=== PATIENT | male | born 1985 | race Caucasian/White ===

== ENCOUNTER 2016-11-30 16:53 | Emergency (ER) | payer OTHER ==
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
--- NOTE | 2016-11-30 19:04 | ED MAR SUMMARY ---
..... Medication Administration Record [facility] [address] [place], [place] [id number] Patient: CYRUS FAIRBANKS Visit ID: [id number] 31y, M Weight: 88.4 kg Height/Length: 72 in BMI: 26.5 ALLERGIES: Sulfa Antibiotics
--- NOTE | 2016-11-30 19:04 | ED MED RECONCILIATION SUMMARY ---
Patient: CYRUS FAIRBANKS Medication Reconciliation Report [facility] VisitID: [id number] [address] [place] [address] 31y, M Registration Date/Time: 11/30/2016 Weight: 88.4 kg Height/Length: 72 in. BMI: 26.5 ALLERGIES: Sulfa Antibiotics The patient's Home Medications are listed below: THE FOLLOWING MEDICATIONS NEED TO BE RECONCILED: Suboxone Sublingual 4-10 mg , daily The source(s) of the original Home Medication information: patient The following Medications were given to the patient in the Emergency Department: None. The following Medications were prescribed to the patient: Amoxicillin 500 mg tablets: Take 1 orally every 8 hours for 10 days. Dispense thirty (30). No refills. -- Aurea Borrego P.A.-C
--- NOTE | 2016-11-30 19:04 | ED DISCHARGE INSTRUCTIONS ---
Patient: CYRUS FAIRBANKS General Instructions [facility] VisitID: [id number] [place] [address] 31y, M Registration Date/Time: 11/30/2016 Acute left otitis media. INSTRUCTIONS Drink plenty of fluids. Prescription Medications: Amoxicillin 500 mg tablets: Take 1 orally every 8 hours for 10 days. Dispense thirty (30). No refills. Follow-up with: Leighton Emery MD, ENT, , [facility], [address], [facility], [address] Follow up. Call for the next available appointment. ADDITIONAL INFORMATION Middle Ear Infection (Adult) You have an infection of the middle ear (the space behind the eardrum). It can occur as a result of the common cold. This is because congestion can block the internal passage (eustachian tube) that drains fluid from the middle ear. When the middle ear fills with fluid, bacteria can grow there and cause an infection. Oral antibiotics are used to treat this illness, not ear drops. Symptoms usually start to improve within 1-2 days of treatment. Home Care: Finish all of the antibiotic medicine prescribed, even though you may feel better after the first few days. You may use acetaminophen (Tylenol) or ibuprofen (Motrin, Advil) to control pain, unless something else was prescribed. [NOTE: If you have chronic liver or kidney disease or have ever had a stomach ulcer or GI bleeding, talk with your doctor before using these medicines.] (Do not give aspirin to anyone under 18 years of age who is ill with a fever. It may cause severe liver damage.) Follow Up with your doctor or this facility in two weeks if all symptoms have not cleared, or if hearing does not return to normal within one month. Get Prompt Medical Attention if any of the following occur: Ear pain gets worse or does not improve after three days of treatment Unusual drowsiness or confusion Neck pain, stiff neck or headache Fluid or blood draining from the ear canal Fever of 100.4F (38C) or higher after 3 days of antibiotics, or as directed by your healthcare provider Convulsion (seizure) You have been given the following additional information: Otitis Media, Abx Tx (Adult) (Electronically signed by Aurea Borrego P.A.-C 11/30/2016 17:20)
--- NOTE | 2016-11-30 19:04 | ED DISCHARGE INSTRUCTIONS ---
Patient: CYRUS FAIRBANKS General Instructions [facility] VisitID: [id number] [place] [address] 31y, M Registration Date/Time: 11/30/2016 Acute left otitis media. INSTRUCTIONS Drink plenty of fluids. Prescription Medications: Amoxicillin 500 mg tablets: Take 1 orally every 8 hours for 10 days. Dispense thirty (30). No refills. Follow-up with: Leighton Emery MD, ENT, , [facility], [address], [facility], [id number] Follow up. Call for the next available appointment. ADDITIONAL INFORMATION Middle Ear Infection (Adult) You have an infection of the middle ear (the space behind the eardrum). It can occur as a result of the common cold. This is because congestion can block the internal passage (eustachian tube) that drains fluid from the middle ear. When the middle ear fills with fluid, bacteria can grow there and cause an infection. Oral antibiotics are used to treat this illness, not ear drops. Symptoms usually start to improve within 1-2 days of treatment. Home Care: Finish all of the antibiotic medicine prescribed, even though you may feel better after the first few days. You may use acetaminophen (Tylenol) or ibuprofen (Motrin, Advil) to control pain, unless something else was prescribed. [NOTE: If you have chronic liver or kidney disease or have ever had a stomach ulcer or GI bleeding, talk with your doctor before using these medicines.] (Do not give aspirin to anyone under 18 years of age who is ill with a fever. It may cause severe liver damage.) Follow Up with your doctor or this facility in two weeks if all symptoms have not cleared, or if hearing does not return to normal within one month. Get Prompt Medical Attention if any of the following occur: Ear pain gets worse or does not improve after three days of treatment Unusual drowsiness or confusion Neck pain, stiff neck or headache Fluid or blood draining from the ear canal Fever of 100.4F (38C) or higher after 3 days of antibiotics, or as directed by your healthcare provider Convulsion (seizure) You have been given the following additional information: Otitis Media, Abx Tx (Adult) (Electronically signed by Aurea Borrego P.A.-C 11/30/2016 17:20)
--- NOTE | 2016-11-30 19:04 | ED MED RECONCILIATION SUMMARY ---
Patient: CYRUS FAIRBANKS Medication Reconciliation Report [facility] VisitID: [id number] [address] [place] [address] 31y, M Registration Date/Time: 11/30/2016 Weight: 88.4 kg Height/Length: 72 in. BMI: 26.5 ALLERGIES: Sulfa Antibiotics The patient's Home Medications are listed below: THE FOLLOWING MEDICATIONS NEED TO BE RECONCILED: Suboxone Sublingual 4-10 mg , daily The source(s) of the original Home Medication information: patient The following Medications were given to the patient in the Emergency Department: None. The following Medications were prescribed to the patient: Amoxicillin 500 mg tablets: Take 1 orally every 8 hours for 10 days. Dispense thirty (30). No refills. -- Aurea Borrego P.A.-C
--- NOTE | 2016-11-30 19:04 | ED MAR SUMMARY ---
..... Medication Administration Record [facility] [address] [place], [place] [id number] Patient: CYRUS FAIRBANKS Visit ID: [id number] 31y, M Weight: 88.4 kg Height/Length: 72 in BMI: 26.5 ALLERGIES: Sulfa Antibiotics
== END 2016-11-30 17:15 | disposition home or self-care (01) ==
LOC: ED SRH 16:53
DX: H66.92 Otitis media, unspecified, left ear (principal); F17.210 Nicotine dependence, cigarettes, uncomplicated; Z88.2 Allergy status to sulfonamides